=== PATIENT | female | born 1970 | race Caucasian/White ===

== ENCOUNTER 2022-06-09 17:37 | Outpatient (CLI) | payer OTHER, SELFPAY ==
--- NOTE | ~2022-06-09 | MM_ITS ---
EXAMINATION: MM screening cb BI w shanice HISTORY: Screening TECHNIQUE: Craniocaudal and mediolateral oblique 3-D tomosynthesis images were obtained and synthetic 2-D images were generated. CAD analysis was submitted and interpreted. COMPARISON: No prior mammogram is available for comparison at this institution. BREAST PARENCHYMAL COMPOSITION: There are scattered areas of fibroglandular density. FINDINGS: There are bilateral breast asymmetries affecting the upper outer quadrant of the right mora st and upper aspect of the left breast. IMPRESSION: 1. Bilateral breast asymmetries. 2. Recommend comparison to previous outside mammograms. BI-RADS Category 0: Incomplete: Needs additional imaging evaluation. Reviewed, dictated and finalized at location B. 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
== END 2022-06-09 17:38 | disposition home or self-care (01) ==
PROVIDERS: PCP Family Medicine; Visit Provider Obstetrics & Gynecology
DX: Z12.31 Encounter for screening mammogram for malignant neoplasm of breast (principal); R92.8 Other abnormal and inconclusive findings on diagnostic imaging of breast
CPT/HCPCS: 77063; 77067

== ENCOUNTER 2023-01-19 15:36 | Outpatient (CLI) | payer OTHER, SELFPAY ==
--- NOTE | ~2023-01-19 | XR_ITS ---
XR knee RT min 4V DATE: 01/19/2023 15:55 INDICATION: Right knee pain for one month. No injury. TECHNIQUE: 4 views COMPARISON: None FINDINGS: Joint spaces are well preserved. Slight periarticular spurring of the patella. No fracture or dislocation or joint effusion. No radiopaque intra-articular loose body or chondral ca lcinosis. No periosteal reaction or bone destruction. IMPRESSION: Slight osteoarthritis Reviewed, dictated and finalized at location A. IMPRESSION: Slight osteoarthritis
== END 2023-01-19 15:37 | disposition home or self-care (01) ==
LOC: CHSIMG 15:38
PROVIDERS: PCP Family Medicine; Visit Provider Family Medicine
DX: M25.561 Pain in right knee (principal); M17.11 Unilateral primary osteoarthritis, right knee
CPT/HCPCS: 73564

== ENCOUNTER 2023-07-21 08:50 | Outpatient (CLI) | payer OTHER, SELFPAY ==
--- NOTE | 2023-08-21 09:40 | WPDHOLTEREM ---
Holter/Event Monitor Holter/Event Monitor Date of procedure: 07/21/23 Holter/Event Procedure: Event Monitor Indications: Palpitations Conclusion: 1. 26 days event monitor between 07/21/23-08/18/23. There are 37 available transmissions for analysis. 2. Predominant rhythm is sinus rhythm. HR range 49-172 bpm; average HR 77 bpm. HR at 172 bpm was on 07/31/23 at 16:37. 3. There are no premature supraventricular complexes. No supraventricular tachycardia. 4. There are occasional premature ventricular complexes with total burden of 1%. There is 1 episode of ventricular tachycardia at 131 bpm lasting 4 beats on 08/05/23 at 19:25. 5. No significant pauses greater than 2 seconds. 6. Patient reports 7 episodes of symptoms of skipped beat, and symptoms other than listed which demonstrate sinus rhythm, HR range 73-101 bpm and 4 episodes with PVC's.
== END 2023-07-21 08:51 | disposition home or self-care (01) ==
LOC: CHSCARD 08:52
PROVIDERS: PCP Family Medicine; Visit Provider Family Medicine
DX: R00.2 Palpitations (principal)
CPT/HCPCS: 93270

== ENCOUNTER 2023-08-30 11:32 | Outpatient (CLI) | payer OTHER, SELFPAY ==
--- NOTE | ~2023-08-30 | MM_ITS ---
EXAMINATION: MM screening cb BI w shanice HISTORY: Screening mammogram TECHNIQUE: Craniocaudal and mediolateral oblique 3-D tomosynthesis images were obtained and synthetic 2-D images were generated. CAD analysis was submitted and interpreted. COMPARISON: 06/09/2022, 06/22/2020 bilateral screening mammogram examinations BREAST PARENCHYMAL COMPOSITION: There are scattered areas of fibroglandular density. FINDINGS: There is no evidence of suspicious mass, calcification, or architectural distortion to sugg est malignancy in either breast. There has been no suspicious interval change. IMPRESSION: 1. No mammographic evidence of malignancy. 2. Recommend routine screening mammography in one year. BI-RADS Category 1: Negative Reviewed, dictated and finalized at location A. 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
== END 2023-08-30 11:33 | disposition home or self-care (01) ==
PROVIDERS: PCP Family Medicine; Visit Provider Obstetrics & Gynecology
DX: Z12.31 Encounter for screening mammogram for malignant neoplasm of breast (principal)
CPT/HCPCS: 77063; 77067

== ENCOUNTER 2024-09-04 09:46 | Outpatient (CLI) | payer OTHER, SELFPAY ==
--- NOTE | ~2024-09-04 | MM_ITS ---
EXAMINATION: MM screening cb BI w shanice HISTORY: Screening mammogram, family history of breast cancer in her mother. TECHNIQUE: Craniocaudal and mediolateral oblique 3-D tomosynthesis images were obtained and synthetic 2-D images were generated. CAD analysis was submitted and interpreted. COMPARISON: 08/30/2023, 06/09/2022, 08/23/2019 BREAST PARENCHYMAL COMPOSITION:Dense: The breasts are heterogeneously dense, which may obscure small masses. FINDINGS: No suspicious mass, calcification, or architectural distortion are identified in either brayden ast to suggest malignancy. There has been no suspicious interval change. IMPRESSION: No mammographic evidence of malignancy. Recommend routine screening mammography in one year. BI-RADS Category 1: Negative Reviewed, dictated and finalized at location .
--- OUTSIDE RECORDS SUMMARY | 2024-09-04 10:41 | XMS_ITS | Clinical Summary ---
Author Organization [facility] Address [facility] [place] [address] Care Team Providers Care Licensed Direct Entry Midwife Name Role Phone None, Provider MD Primary Care Provider Unavaila ble Allergies No known active allergies Medications Fexofenadine-Ps eudoephedrine (JUAN JOSE-D OR) Take by mouth. Active probiotic (FLORAJEN3) Cap capsule Take 1 capsule by mouth 3 (three) times daily with meals. Active Multiple Vitamins-Minera ls (MULTIVITAMIN ADULT, MINERALS,) Tab Activ e Magnesium 500 MG Cap Active Active Problems No known active problems Resolved Problems Problem Noted Date Diagnosed Date Resolved Date Encounter for screening for malignant neoplasm of colon 10/09/2023 10/16/2023 Encounter for screening for malignant neoplasm of colon 10/09/2023 10/30/2023 Encounter for screening for malignant neoplasm of colon 10/09/2023 11/20/2023 Encounter for screening for malignant neoplasm of colon 10/09/2023 11/27/2023 Encounter for screening for malignant neoplasm of colon 10/09/2023 12/04/2023 Social History Tobacco Use Types Packs/Day Years Used Date Smoking Tobacco: Never Passive Smoke Exposure: Never Smokeless Tobacco: Never Tobacco Cessation:Counseling Given: No Alcohol Use Standard Drinks/Week Comments Yes 0 (1 standard drink = 0.6 oz pur e alcohol) occassionally Comments Unknown Sex and Gender Information Value Date Recorded Sex Assigned at Not on file Legal Sex Female 7:08 PM CDT Gender Identity Not on file Sexual Orientation Not on file Last Filed Vital Signs Vital Sign Reading Time Taken Comments Blood Pressure 118/64 11/29/2023 11:29 AM CDT Pulse 64 11/29/2023 11:29 AM CDT Temperature 36.7 C (98 F) 11/29/2023 11:29 AM CDT Respiratory Rate 16 11/29/2023 11:29 AM CDT Oxygen Saturation 100% 11/29/2023 11:29 AM CDT Inhaled Oxygen Concentration - - Weight 60.8 kg (134 lb) 11/29/2023 8:44 AM CDT Height 162.6 cm (5' 4 ) 11/29/2023 8:44 AM CDT Body Mass Index 23 11/29/2023 8:44 AM CDT Plan of Treatment Health Maintenance Due Date Last Done Comments Cervical Cancer Screening Pa p Smear (Age 30 to 64) Every 3 Years 1972 Annual Physical 02/06/1975 PHQ-2 (Physician [facility]) 1984 Hepatitis C 02/06/1990 Hepatitis B Vaccines (1 of 3 - 19+ 3-dose series) 02/06/1991 Cervical Cancer Screening Pa p with HPV Testing (Age 30 to 64) Every 5 Years 02/06/2002 Cervical Cancer Screening wi th HPV 02/06/2002 Mammogram Screening 2012 Zoster Vaccines (2 of 2) 09/13/2023 07/19/2023 COVID-19 Vaccine (4 - 2023-2 5 season) 2024 04/30/2021, 09/08/2020, 08/21/2020 Influenza Adult (#1) 2024 PHQ-2 (Physician [facility]) 06/26/2024 DTaP, Tdap and Td Vaccines ( 2 - Td or Tdap) 07/19/2033 07/19/2023 Colorectal Cancer Screening Colonoscopy (10 Years) 11/28/2033 11/29/2023 Meningococcal B Vaccine Aged Out No l onger eligible based on patient's age to complete this topic Meningococcal Vaccine Aged Out No uche stewart eligible based on patient's age to complete this topic Pneumococcal Vaccine: Pediatrics (0 to 5 Years) and At-Risk Patients (6 to 64 Years) Aged Out No longer eligible b ased on patient's age to complete this topic RSV Immunizations Under 20 Months Aged Out No longer eligible b ased on patient's age to complete this topic Insurance [employer] Care Teams Licensed Direct Entry Midwife Relationship Specialty Start Date End Date None, Provider, MD PCP - General UNKNOWN PHYSICIAN SPECIALTY 10/17/23
--- OUTSIDE RECORDS SUMMARY | 2024-09-04 10:41 | XMS_ITS | Clinical Summary ---
Author Organization [facility] Address [address] [place] [address] Phone Care Team Providers Care Product Marketing Programs Manager Name Role Phone Provider, Unknown Primary Care Provider Unavaila ble Allergies No known active allergies Medications Fexofenadine HCl (JUAN JOSE PO) Take by mouth. 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 Gender Identity Not on file Sexual Orientation Not on file Last Filed Vital Signs Vital Sign Reading Time Taken Comments Blood Pressure 128/76 04/26/2020 12:32 PM UI LEAD DEVELOPER Pulse 75 04/26/2020 12:32 PM UI LEAD DEVELOPER Temperature 37.3 C (99.1 F) 04/26/2020 12:32 PM UI LEAD DEVELOPER Respiratory Rate 20 04/26/2020 12:32 PM UI LEAD DEVELOPER Oxygen Saturation 98% 04/26/2020 12:32 PM UI LEAD DEVELOPER Inhaled Oxygen Concentration - - Weight 61.2 kg (135 lb) 04/26/2020 12:32 PM UI LEAD DEVELOPER Height - - Body Mass Index - - Plan of Treatment Health Maintenance Due Date Last Done Comments Hepatitis C Virus (HCV) Screening 1970 TdaP Immunization 1970 Pap Smear 02/06/1993 Cervical Cancer Screening (CCS) 02/06/2002 HPV/Cotest 02/06/2002 Hepatitis B Immunization (2 of 3 - 19+ 3-dose series) 02/23/2005 01/26/2005 Colonoscopy 02/06/2017 Colorectal Cancer Screening 02/06/2017 Cologuard 02/06/2022 Immunochemical Fecal Occult Blood 02/06/2022 Mammogram 02/06/2022 Pneumococcal Immunization (5 0+ years) (1 of 1 - PCV) 02/06/2022 Zoster Immunization (1 of 2) 02/06/2022 Influenza Immunization (#1) 2024 SARS-COV-2 Immunization (4 - season) 2024 04/30/2021, 09/08/2020, 08/21/2020 Respiratory Syncytial Virus (RSV) Immunization (Adult) (1 - 1-dose 75+ series) 02/06/2047 Meningococcal Immunization (ACWY) Aged Out No longer eligible b ased on patient's age to complete this topic Pneumococcal Immunization Combined Aged Out No longer eligible b ased on patient's age to complete this topic Rotavirus Immunization Aged Out No lo nger eligible based on patient's age to complete this topic Care Teams Product Marketing Programs Manager Relationship Specialty Start Date End Date Provider, Unknown UNKNOWN PCP - General 04/26/20
== END 2024-09-04 09:47 | disposition home or self-care (01) ==
LOC: CHSIMG 09:49
PROVIDERS: PCP Family Medicine; Visit Provider Obstetrics & Gynecology
DX: Z12.31 Encounter for screening mammogram for malignant neoplasm of breast (principal)
CPT/HCPCS: 77063; 77067